=== PATIENT | female | born 1990 | race African-American/Black ===

== ENCOUNTER 2018-06-06 12:27 | Emergency (ER) | payer MEDICAID ==
[~2018-06-06] VITALS: Ht 157.5 cm; Wt 59.0 kg
[2018-06-06] MEDS ORDERED: SODIUM CHLORIDE 0.9% 1,000 ML IV ONE (13:50)
[2018-06-06] MEDS ORDERED: ACETAMINOPHEN 500MG TABLET PO ONE (16:15)
[2018-06-06 16:18] LABS: CHLORIDE 105 mEq/L (98-107)
[2018-06-06 16:19] LABS: BASOPHILS % 0.5 % (0.0-2.0); EOSINOPHILS % 1.5 % (0.0-5.0); HEMATOCRIT. 30.7 % (36.0-48.0); HEMOGLOBIN. 10.1 g/dL (12.0-16.0); LYMPHOCYTES % 20.2 % (20.0-50.0); MEAN CORPUSCULAR HEMOGLOBIN 23.7 pg (28.0-32.0); MEAN CORPUSCULAR VOLUME 72.1 fL (81.0-99.0); MEAN PLATELET VOLUME 8.8 fl (7.4-10.4); MONOCYTES % 5.6 % (2.0-8.0); NEUTROPHILS % 72.2 % (40.0-76.0); PLATELET 236 x1000/uL (130-400); RED BLOOD CELL COUNT 4.26 mill/uL (4.2-5.4); RED CELL DISTRIBUTION WIDTH 14.4 % (11.6-14.6)
[2018-06-06 16:41] LABS: B-HCG QUANTITATIVE 124668 mIU/mL (<3)
[2018-06-06 17:16] LABS: CLARITY URINE CLEAR (CLEAR); COLOR URINE YELLOW (YELLOW); KETONES URINE NEGATIVE (NEGATIVE); LEUKOCYTE ESTERASE URINE NEGATIVE (NEGATIVE); NITRITE URINE NEGATIVE (NEGATIVE); OCCULT BLOOD URINE 3+ (NEGATIVE); PROTEIN URINE NEGATIVE (NEGATIVE); SPECIFIC GRAVITY URINE 1.017 (1.005-1.030)
[2018-06-06 18:38] VITALS: BP 115/64
== END 2018-06-06 18:40 | disposition home or self-care (01) ==
LOC: EDSEX 12:27 → ER 12:27
DX: O20.0 Threatened abortion (principal); O21.9 Vomiting of pregnancy, unspecified; Z3A.12 12 weeks gestation of pregnancy
CPT/HCPCS: 36415; 76801; 76817; 80053; 81003; 81025; 84702; 85025; 86850; 86900; 86901; 99285; J7030

== ENCOUNTER 2023-10-18 09:25 | Emergency (ER) | payer SELFPAY ==
[~2023-10-18] VITALS: Ht 154.9 cm; Wt 72.0 kg
[2023-10-18 09:37] VITALS: BP 109/44; PULSE 98; RESP 16; TEMP 98.6; O2SAT 100
[2023-10-18] MEDS: DEXAMETHASONE 10 MG/ML VIAL IV ONE (10:15)
== END 2023-10-18 11:01 | disposition home or self-care (01) ==
LOC: ER 09:25
DX: B34.9 Viral infection, unspecified (principal); D64.9 Anemia, unspecified
CPT/HCPCS: 99283; 96374; J1100

== ENCOUNTER 2024-02-21 21:19 | Emergency (ER) | payer MEDICAID ==
[~2024-02-21] VITALS: Ht 154.9 cm; Wt 64.0 kg
[2024-02-21 21:51] VITALS: BP 108/64; PULSE 87; RESP 18; TEMP 98.1; O2SAT 97
== END 2024-02-22 00:15 | disposition left against medical advice (07) ==
LOC: ER 21:45
DX: H57.89 Other specified disorders of eye and adnexa (principal); Z53.21 Procedure and treatment not carried out due to patient leaving prior to being seen by health care provider

== ENCOUNTER 2025-01-23 15:29 | Emergency (ER) | payer MEDICAID ==
[~2025-01-23] VITALS: Ht 157.5 cm; Wt 60.0 kg
[2025-01-23 15:43] VITALS: O2SAT 100
[2025-01-23] MEDS ORDERED: AMOX1TAB16 MT (17:54)
[2025-01-23] MEDS ORDERED: BO1 TP (17:54)
[2025-01-23] MEDS ORDERED: IBUP-2029 MT (17:54)
[2025-01-23] MEDS ORDERED: LIDOCAINE 5% PATCH TOP SCH (18:00)
[2025-01-23] MEDS ORDERED: BACITRACIN ZINC OINT UDPKT TOP ONE (18:00)
[2025-01-23 18:45] VITALS: BP 127/88; PULSE 68; RESP 14; TEMP 37.3; O2SAT 100
== END 2025-01-23 19:16 | disposition home or self-care (01) ==
LOC: ER 15:29
DX: S61.216A Laceration without foreign body of right little finger without damage to nail, initial encounter (principal); R07.81 Pleurodynia; Z88.5 Allergy status to narcotic agent; Z79.899 Other long term (current) drug therapy; Y04.0XXA Assault by unarmed brawl or fight, initial encounter; Y93.89 Activity, other specified; Y92.89 Other specified places as the place of occurrence of the external cause; Y99.8 Other external cause status
CPT/HCPCS: 71045; 12001; 99283; Z7610 ×2